=== PATIENT | male | born 1935 | race Caucasian/White ===

== ENCOUNTER → 2017-03-30 | Outpatient (CLI) | payer MEDICARE ==
--- NOTE | 2017-03-30 10:38 | PCVCIMAG ---
EXAM: AORTOILIAC DUPLEX INDICATION: Peripheral arterial disease FINDINGS: AORTA: Suprarenal aorta measures maximum diameter of 2.9 cm. There is a fusiform infrarenal aortic aneurysm. The infrarenal aorta measures maximum diameter of 3.7 cm. No aortic stenosis. RIGHT COMMON ILIAC ARTERY: Maximum diameter is 1.2 cm. No significant stenosis. RIGHT EXTERNAL ILIAC ARTERY: No significant stenosis. LEFT COMMON ILIAC ARTERY: Maximum diameter is 1.3 cm. No significant stenosis. LEFT EXTERNAL ILIAC ARTERY: No significant stenosis. IMPRESSION: 3.7 cm infrarenal abdominal aortic aneurysm. LOC:[id number]
--- NOTE | 2017-03-30 11:43 | PCVCIMAG ---
APPROVED REPORT Study performed: 03/30/2017 10:10:54 EXAM: Comprehensive 2D, Doppler, and color-flow Echocardiogram Patient Location: Echo lab Status: routine Other Information Study Quality: Fair Indications Pacemaker, cardiomyopathy, Hypertension, hyperlipidemia. Pre op Shoulder surgery. 2D Dimensions IVSd: 6.09 (7-11mm)LVOT Diam: 21.18 (18-24mm) LVDd: 46.42 mm PWd: 8.55 (7-11mm)Ascending Ao: 41.05 (22-36mm) LVDs: 39.08 (25-40mm) Left Atrium: 42.62 (27-40mm) Aortic Root: 33.02 mm LV Single Plane 4CH: 44.63 % LV Single Plane 2CH: 57.78 %Lloyd's LVEF: 51.21 % Biplane EF: 51.8 % Volumes Left Atrial Volume (Systole) Single Plane 4CH: 77.42 mLSingle Plane 2CH: 87.93 mL LA ESV Index: 32.00 mL/m2 Aortic Valve AoV Peak Ramírez.: 1.38 m/s AO Peak Gr.: 7.60 mmHgLVOT Max P.55 mmHg LVOT Max V: 0.80 m/s CARMEN Vmax: 2.04 cm2 AI Vmax: 4.44 m/s AI [place]: 1.49 m/s2 AI PHT: 862.17 ms Mitral Valve E/A Ratio: 0.9 MV E Max Ramírez.: 0.94 m/s MV A Ramírez.: 1.05 m/s Tricuspid Valve TR Peak Ramírez.: 2.48 m/s TR Peak Gr.: 24.85 mmHg Left Ventricle The left ventricle is normal size. There is normal LV segmental wall motion. There is normal left ventricular wall thickness. Left ventricular systolic function is mildly decreased. LVEF is 45-50%. This study is not technically sufficient to allow evaluation of the LV diastolic function. Right Ventricle Pacemaker is noted. The right ventricular systolic function is normal. Atria The left atrium size is normal. Pacemaker is noted. Aortic Valve The aortic valve is normal in structure. Mild to moderate aortic regurgitation. There is no aortic valvular stenosis. Mitral Valve The mitral valve is normal in structure. There is no mitral valve regurgitation noted. No evidence of mitral valve stenosis. Tricuspid Valve The tricuspid valve is normal in structure. Mild to moderate tricuspid regurgitation. Pulmonary artery pressure is 32mmhg. Pulmonic Valve The pulmonary valve is normal in structure. There is no pulmonic valvular regurgitation. Great Vessels The aortic root is normal in size. The ascending aorta is midly increased measuring 4.1. IVC is normal in size and collapses with >50% inspiration Pericardium There is no pericardial effusion. <Conclusion> The left ventricle is normal size. There is normal left ventricular wall thickness. LVEF is 45-50%. This study is not technically sufficient to allow evaluation of the LV diastolic function. Pacemaker is noted. The left atrium size is normal. Mild to moderate aortic regurgitation. Mild to moderate tricuspid regurgitation. Pulmonary artery pressure is 32mmhg. There is no mitral valve regurgitation noted. There is no pericardial effusion.
== END | disposition home or self-care (01) ==
LOC: PCVCIMAG 09:36
PROVIDERS: ATTEND Internal Medicine Cardiovascular Disease
DX: Z01.810 Encounter for preprocedural cardiovascular examination (principal); I08.2 Rheumatic disorders of both aortic and tricuspid valves; I73.9 Peripheral vascular disease, unspecified; I71.4 Abdominal aortic aneurysm, without rupture; I42.9 Cardiomyopathy, unspecified; I25.10 Atherosclerotic heart disease of native coronary artery without angina pectoris; I48.91 Unspecified atrial fibrillation; I10 Essential (primary) hypertension; I44.2 Atrioventricular block, complete; E78.00 Pure hypercholesterolemia, unspecified; Z95.0 Presence of cardiac pacemaker; Z79.82 Long term (current) use of aspirin; Z91.048 Other nonmedicinal substance allergy status
CPT/HCPCS: 80061; 93005; 93280; 93306; 93978; G0463

== ENCOUNTER → 2017-06-21 | Outpatient (CLI) | payer MEDICARE | END | disposition home or self-care (01) | LOC: PCVCCLINIC 09:38 | PROVIDERS: ATTEND Internal Medicine Cardiovascular Disease | DX: I25.10 Atherosclerotic heart disease of native coronary artery without angina pectoris (principal); I87.2 Venous insufficiency (chronic) (peripheral); E78.00 Pure hypercholesterolemia, unspecified; I49.5 Sick sinus syndrome; I71.4 Abdominal aortic aneurysm, without rupture; I48.2 Chronic atrial fibrillation; I10 Essential (primary) hypertension; Z95.810 Presence of automatic (implantable) cardiac defibrillator; Z79.82 Long term (current) use of aspirin; Z79.899 Other long term (current) drug therapy; Z91.048 Other nonmedicinal substance allergy status | CPT/HCPCS: 93005; G0463 ==

== ENCOUNTER → 2018-04-04 | Outpatient (CLI) | payer MEDICARE | END | disposition home or self-care (01) | LOC: PCVCIMAG 12:23 | DX: I25.10 Atherosclerotic heart disease of native coronary artery without angina pectoris (principal); I10 Essential (primary) hypertension; I87.2 Venous insufficiency (chronic) (peripheral); I71.4 Abdominal aortic aneurysm, without rupture; E78.00 Pure hypercholesterolemia, unspecified; I42.9 Cardiomyopathy, unspecified; R60.0 Localized edema; I49.5 Sick sinus syndrome; I48.91 Unspecified atrial fibrillation; Z45.02 Encounter for adjustment and management of automatic implantable cardiac defibrillator; Z79.899 Other long term (current) drug therapy | CPT/HCPCS: 80061; 93005; 93306; 93978; G0463 ==

== ENCOUNTER → 2018-10-09 | Outpatient (CLI) | payer MEDICARE | END | disposition home or self-care (01) | LOC: PCVCCLINIC 11:03 | PROVIDERS: ATTEND Internal Medicine Cardiovascular Disease | DX: I25.10 Atherosclerotic heart disease of native coronary artery without angina pectoris (principal); I87.2 Venous insufficiency (chronic) (peripheral); I71.4 Abdominal aortic aneurysm, without rupture; I11.9 Hypertensive heart disease without heart failure; I42.0 Dilated cardiomyopathy; I95.89 Other hypotension; E78.00 Pure hypercholesterolemia, unspecified; E78.5 Hyperlipidemia, unspecified; I08.1 Rheumatic disorders of both mitral and tricuspid valves; Z95.0 Presence of cardiac pacemaker; Z79.899 Other long term (current) drug therapy; Z91.048 Other nonmedicinal substance allergy status | CPT/HCPCS: 93281; G0463 ==